=== PATIENT | male | born 1995 | race Two or more races ===

== ENCOUNTER 2017-01-23 20:20 | Emergency (ER) | payer MEDICAID ==
[~2017-01-23] VITALS: Ht 172.7 cm; Wt 81.6 kg
[2017-01-23] MEDS ORDERED: NKM (20:34)
[2017-01-23 20:38] VITALS: BP 118/80
[2017-01-23] MEDS ORDERED: Ampicillin/Sulbactam Sod 3 GM in NS 110 ML IVPB ONE (20:45)
--- NOTE | 2017-01-23 20:49 | Emergency Room Report ---
History of Present Illness General Chief Complaint: Abdominal Pain Source: Patient Present Illness HPI Patient is a 21-year-old male who presented after increased abdominal pain. The patient gradual onset of symptoms. Patient had a periumbilical pain which is intermittent in nature. Pain was noted be more prominent in the right lower abdomen. Patient had gradual onset of symptoms. Patient had some diarrhea initially. Patient denied any hematemesis or bloody stools.The patient reported having onset of fever today. He thinks that he may have eaten some bad food. Allergies: Coded Allergies: No Known Allergies (Unverified , 01/23/17) Patient History Past Medical History: see triage record Reviewed Nursing Documentation: PMH: Agreed, PSxH: Agreed Nursing Documentation-PMH Past Medical History: No Stated History Review of Systems All Other Systems: negative except mentioned in HPI Physical Exam Vital Signs Date Time Temp Pulse Resp B/P Pulse Ox O2 Delivery O2 Flow Rate FiO2 01/23/17 20:31 100.4 155 16 118/80 100 Room Air Sp02 EP Interpretation: reviewed, normal General Appearance: normal inspection, well appearing, no apparent distress, alert, GCS 15 Head: atraumatic ENT: normal ENT inspection, hearing grossly normal, normal voice Neck: normal inspection, full range of motion, supple, no bony tend Respiratory: normal inspection, lungs clear, normal breath sounds, no respiratory distress, no retraction, no wheezing Cardiovascular #1: regular rate, rhythm, no edema Gastrointestinal: normal inspection, normal bowel sounds, soft, no guarding, no hernia, tenderness - right lower abdomen Genitourinary: no CVA tenderness Musculoskeletal: normal inspection, back normal, normal range of motion Neurologic: normal inspection, alert, responsive, speech normal Psychiatric: normal inspection, judgement/insight normal, mood/affect normal Skin: normal inspection, normal color, no rash Medical Decision Making Diagnostic Impression: Primary Impression: Abdominal pain Additional Impressions: Mesenteric adenitis Dehydration ER Course Patient presented for abdominal Pain. Differential diagnoses included ischemic bowel, appendicitis, perforated viscus, abdominal aortic aneurysm, inferior myocardial infarction, viral gastroenteritis. Because of complexity of patient' s case laboratory testing and imaging studies were ordered. The patient noted have a low-grade fever as well as some right lower quadrant tenderness. CT imaging of the abdomen pelvis was ordered due to the patient's location of pain. The patient had exam concerning for possible appendicitis. The CT abdomen pelvis read by radiology shows no evidence of appendicitis or bowel obstruction. Patient was noted to have improvement in his heart rate after IV fluids. Patient was noted have some nonspecific mesenteric lymph nodes. The patient is advised to hydration prescription for antibiotics as well as antidiarrheal medications The patient is advised to follow up with primary care doctor in 1-2 days. Patient is advised to return if any worsening condition or if any changes in status that are concerning. Labs Test 01/23/17 20:40 White Blood Count 6.8 K/UL (4.8-10.8) Red Blood Count 4.76 M/UL (4.70-6.10) Hemoglobin 15.6 G/DL (14.2-18.0) Hematocrit 43.9 % (42.0-52.0) Mean Corpuscular Volume 92 FL (80-99) Mean Corpuscular Hemoglobin 32.8 PG (27.0-31.0) Mean Corpuscular Hemoglobin Concent 35.5 G/DL (32.0-36.0) Red Cell Distribution Width 11.3 % (11.6-14.8) Platelet Count 277 K/UL (150-450) Mean Platelet Volume 6.0 FL (6.5-10.1) Neutrophils (%) (Auto) 78.2 % (45.0-75.0) Lymphocytes (%) (Auto) 12.9 % (20.0-45.0) Monocytes (%) (Auto) 7.9 % (1.0-10.0) Eosinophils (%) (Auto) 0.2 % (0.0-3.0) Basophils (%) (Auto) 0.8 % (0.0-2.0) Prothrombin Time 10.5 SEC (9.30-11.50) Prothromb Time International Ratio 1.0 (0.9-1.1) Activated Partial Thromboplast Time 28 SEC (23-33) Urine Color Yellow Urine Appearance Clear Urine pH 6 (4.5-8.0) Urine Specific [place] 1.010 (1.005-1.035) Urine Protein Negative (NEGATIVE) Urine Glucose (UA) Negative (NEGATIVE) Urine Ketones Negative (NEGATIVE) Urine Occult Blood Negative (NEGATIVE) Urine Nitrite Negative (NEGATIVE) Urine Bilirubin Negative (NEGATIVE) Urine Urobilinogen Normal MG/DL (0.0-1.0) Urine Leukocyte Esterase 1+ (NEGATIVE) Sodium Level 137 mEQ/L (135-145) Potassium Level 3.9 mEQ/L (3.4-4.9) Chloride Level 98 mEQ/L (98-107) Carbon Dioxide Level 24 mEQ/L (20-30) Anion Gap 15 (5-15) Blood Urea Nitrogen 14 mg/dL (7-23) Creatinine 1.0 mg/dL (0.7-1.2) Estimat Glomerular Filtration Rate > 60 mL/min (>60) Glucose Level 126 mg/dL (74-106) Calcium Level 9.2 mg/dL (8.6-10.2) Total Bilirubin 0.4 mg/dL (0.0-1.2) Aspartate Amino Transf (AST/SGOT) 24 U/L (5-40) Alanine Aminotransferase (ALT/SGPT) 20 U/L (3-41) Alkaline Phosphatase 98 U/L (40-129) Total Protein 7.8 g/dL (6.6-8.7) Albumin 4.2 g/dL (3.5-5.2) Globulin 3.6 g/dL Albumin/Globulin Ratio 1.1 (1.0-2.7) Lipase 23 U/L (< 60) Last Vital Signs Date Time Temp Pulse Resp B/P Pulse Ox O2 Delivery O2 Flow Rate FiO2 01/23/17 20:38 100.4 155 16 118/80 100 Room Air Status: improved Disposition: HOME, SELF-CARE Condition: Stable Scripts Loperamide Hcl (LOPERAMIDE) 2 Mg Capsule 2 MG PO EVERY 12 HOURS, #14 CAP Prov: Bartolo Duque 01/23/17 Ciprofloxacin Hcl* (CIPROFLOXACIN HCL*) 500 Mg Tablet 500 MG ORAL Q12H, #14 TAB 0 Refills Prov: Bartolo Duque 01/23/17 Bartolo Duque Jan 23, 2017 20:49
[2017-01-23] MEDS ORDERED: Unasyn 3gm Inj ONE (20:51)
[2017-01-23 21:07] LABS: BASOPHILS % (AUTO) 0.8 % (0.0-2.0); EOSINOPHILS % (AUTO) 0.2 % (0.0-3.0); LYMPHOCYTES % (AUTO) 12.9 % (20.0-45.0); MEAN CORPUSCULAR HEMOGLOBIN 32.8 PG (27.0-31.0); MEAN CORPUSCULAR HGB CONC 35.5 G/DL (32.0-36.0); MEAN CORPUSCULAR VOLUME 92 FL (80-99); MONOCYTES % (AUTO) 7.9 % (1.0-10.0); NEUTROPHILS % (AUTO) 78.2 % (45.0-75.0); PLATELET COUNT 277 K/UL (150-450); RED BLOOD COUNT 4.76 M/UL (4.70-6.10); RED CELL DISTRIBUTION WIDTH 11.3 % (11.6-14.8); WHITE BLOOD COUNT 6.8 K/UL (4.8-10.8)
[2017-01-23 21:20] LABS: PROTHROMBIN TIME 10.5 SEC (9.30-11.50)
[2017-01-23 21:21] LABS: ALANINE AMINOTRANSFERASE 20 U/L (3-41); ALBUMIN/GLOBULIN RATIO 1.1 (1.0-2.7); ANION GAP 15 (5-15); ASPARTATE AMINO TRANSFERASE 24 U/L (5-40); CALCIUM 9.2 mg/dL (8.6-10.2); CARBON DIOXIDE 24 mEQ/L (20-30); CHLORIDE 98 mEQ/L (98-107); GLOMERULAR FILTRATION RATE > 60 mL/min (>60); HEMOLYSIS 5; LIPASE 23 U/L (< 60); POTASSIUM 3.9 mEQ/L (3.4-4.9); SODIUM 137 mEQ/L (135-145); TOTAL PROTEIN 7.8 g/dL (6.6-8.7)
[2017-01-23 21:30] VITALS: BP 121/78
[2017-01-23 21:45] LABS: APPEARANCE,URINE CLEAR; KETONES,URINE NEGATIVE (NEGATIVE); LEUKOCYTE ESTERASE ,URINE 1+ (NEGATIVE); NITRITE,URINE NEGATIVE (NEGATIVE); PH,URINE 6 (4.5-8.0); PROTEIN,URINE NEGATIVE (NEGATIVE); UROBILINOGEN,URINE NORMAL MG/DL (0.0-1.0)
[2017-01-23 22:00] LABS: RBC,URINE 0-2 /HPF (0 - 0); WBC,URINE 0-2 /HPF (0 - 0)
[2017-01-23 22:20] VITALS: BP 114/75
[2017-01-23] MEDS ORDERED: LOPERAMIDE2 MG PO (22:28)
[2017-01-23] MEDS ORDERED: CIPROFLOXACIN500 M2 ORAL (22:28)
[2017-01-23 22:41] VITALS: BP 114/75
--- NOTE | 2017-01-24 12:22 | Diagnostic Imaging Report ---
Clinical Indication: Right lower quadrant abdominal pain Technique: No oral contrast utilized, per emergency room physician request IV administration nonionic contrast. Venous phase spiral acquisition obtained through the abdomen and pelvis. Multiplanar reconstructions were generated. Total dose length product 982 mGycm. CTDIvol(s) 17 mGy Comparison: None Findings: The appendix is normal. No evidence of diverticulosis or diverticulitis. Proximal small bowel loops are mildly dilated and fluid-filled although there are intervening areas of normal caliber. No free or loculated intraperitoneal air or fluid. The distal esophagus, stomach, duodenum are unremarkable. The liver, gallbladder, bile ducts, pancreas, spleen, adrenals, kidneys are unremarkable. No mesenteric or retroperitoneal mass or adenopathy. No pelvic mass or adenopathy. The included lung bases are clear. The bones are unremarkable. Impression: Mildly dilated dilated fluid-filled small bowel loops, as described. Suspect mild enteritis as etiology. Correlate with clinical findings No acute process otherwise The CT scanner at [facility] is accredited by the [employer] and the scans are performed using protocols designed to limit radiation exposure to as low as reasonably achievable to attain images of sufficient resolution adequate for diagnostic evaluation.
== END 2017-01-23 22:43 | disposition home or self-care (01) ==
LOC: EMR 20:46 → 3E 22:12 → UNDOADMIN 22:12 → EDBEDREQ 22:16
DX: R10.9 Unspecified abdominal pain (principal); I88.0 Nonspecific mesenteric lymphadenitis; E86.0 Dehydration; R50.9 Fever, unspecified
CPT/HCPCS: 36415; 74177; 80053; 81003; 83690; 85025; 85610; 85730; 86850; 86900; 86901; 96360; 96374; 96375; 99284; J0295; J2405; Q9967

== ENCOUNTER 2019-06-06 18:37 | Emergency (ER) | payer MEDICAID, OTHER ==
[~2019-06-06] VITALS: Ht 175.3 cm; Wt 74.8 kg
[~2019-06-06 18:37] MED LIST: CIPROFLOXACIN500 M2 ORAL; LOPERAMIDE2 MG PO; NKM
--- NOTE | 2019-06-06 18:48 | NUR ---
ED Nurse Note: pt walked in to ED c.o sore throat since last night and had a temp of 102F ealier and tylenol 650mg was taken about 2 hours ago. pt is alert x4.
[2019-06-06 18:50] VITALS: BP 130/76
--- NOTE | 2019-06-06 19:13 | Emergency Room Report ---
History of Present Illness General Chief Complaint: Fever Source: Patient Present Illness HPI 24-year-old male with no significant past medical history here complaining of 3 days of 10 out of 10 sore throat and a fever. Patient's temperature upon arrival is 100 F to the Tylenol prior to arrival. Denies cough and congestion. Complains of right ear pain started to hurt his sore throat. Denies abdominal pain, nausea vomiting, wheezing, shortness of breath, chest pain, palpitation, urinary symptoms. Denies recent travel sick contacts. Has taken [id number] medication for symptom relief however has not found any relief. Allergies: Coded Allergies: No Known Allergies (Unverified , 01/23/17) Patient History Past Medical History: see triage record Past Surgical History: unable to obtain Pertinent Family History: none Immunizations: UTD Reviewed Nursing Documentation: PMH: Agreed; PSxH: Agreed Nursing Documentation-PMH Past Medical History: No Stated History Review of Systems All Other Systems: negative except mentioned in HPI Physical Exam Vital Signs Date Time Temp Pulse Resp B/P (MAP) Pulse Ox O2 Delivery O2 Flow Rate FiO2 06/06/19 18:41 100.2 94 18 129/76 (93) 96 Room Air Sp02 EP Interpretation: reviewed, normal General Appearance: no apparent distress, alert, GCS 15, non-toxic Head: normocephalic, atraumatic Eyes: bilateral eye normal inspection, bilateral eye PERRL ENT: TMs + canals normal, tonsillar swelling, tonsillar exudate Neck: full range of motion, supple/symm/no masses Respiratory: chest non-tender, lungs clear, normal breath sounds, speaking full sentences Cardiovascular #1: regular rate, rhythm, no edema, no murmur, normal capillary refill Gastrointestinal: normal inspection, non tender, soft Rectal: deferred Musculoskeletal: back normal, gait/station normal, normal range of motion, non- tender Neurologic: alert, oriented x3, responsive, motor strength/tone normal, sensory intact, speech normal Psychiatric: judgement/insight normal, memory normal, mood/affect normal, no suicidal/homicidal ideation Skin: no rash Lymphatic: adenopathy - Anterior cervical Medical Decision Making PA Attestation Diagnosis and treatment plans were reviewed and discussed with my supervising physician Dr. Stiles Diagnostic Impression: Primary Impression: Tonsillitis with exudate ER Course 24-year-old male with no significant past medical history here complaining of 3 days of 10 out of 10 sore throat and a fever. Patient's temperature upon arrival is 100 F to the Tylenol prior to arrival. Denies cough and congestion. Complains of right ear pain started to hurt his sore throat. Denies abdominal pain, nausea vomiting, wheezing, shortness of breath, chest pain, palpitation, urinary symptoms. Denies recent travel sick contacts. Has taken [id number] medication for symptom relief however has not found any relief. Ddx considered but are not limited to: strep pharyngitis, URI, tonsillitis, peritonsillar abscess, influneza Vital signs: are WNL, pt. is afebrile H&PE are most consistent with: Tonsillitis with exudate ORDERS: Amoxicillin, ibuprofen ED INTERVENTIONS: Amoxicillin DISCHARGE: At this time pt. is stable for d/c to home. Will provide printed patient care instructions, and any necessary prescriptions. Care plan and follow up instructions have been discussed with the patient prior to discharge. Take medication as directed follow-up with primary care provider if worsening symptoms return to the emergency room Last Vital Signs Date Time Temp Pulse Resp B/P (MAP) Pulse Ox O2 Delivery O2 Flow Rate FiO2 06/06/19 18:41 100.2 94 18 129/76 (93) 96 Room Air Disposition: HOME, SELF-CARE Condition: Stable Scripts Ibuprofen* (MOTRIN*) 600 Mg Tablet 600 MG ORAL Q8H PRN for For Pain, #21 TAB 0 Refills Prov: Nigel Lopez 06/06/19 Amoxicillin* (AMOXIL*) 500 Mg Capsule 500 MG ORAL EVERY 12 HOURS for 10 Days, #20 CAP Prov: Nigel Lopez 06/06/19 Patient Instructions: Strep Throat, Tonsillitis, [id number] Nigel Lopez Jun 06, 2019 19:13
[2019-06-06] MEDS ORDERED: AMOXICILLIN500 MG ORAL (19:14)
[2019-06-06] MEDS ORDERED: IBUPROFEN600 MG ORAL (19:14)
[2019-06-06 19:18] VITALS: BP 122/76
--- NOTE | 2019-06-06 19:18 | NUR ---
ER DISCHARGE NOTE: Patient is cleared to be discharged per ERMD, pt is aox4, on room air, with stable vital signs. pt was given dc and prescription instructions, pt was able to verbalize understanding, pt id band removed without complications. pt is able to ambulate with steady gait. pt took all belongings.
== END 2019-06-06 19:18 | disposition home or self-care (01) ==
LOC: EMR 19:10
DX: J03.90 Acute tonsillitis, unspecified (principal)
CPT/HCPCS: 99282